=== PATIENT | male | born 1990 | race Caucasian/White ===

== ENCOUNTER 2021-09-09 17:01 | Emergency (ER) | payer OTHER, SELFPAY ==
[2021-09-09 17:02] VITALS: BP 129/95; PULSE 92; RESP 16; TEMP 36.6; O2SAT 99; BMI 21.9
--- NOTE | 2021-09-09 17:10 | EX.ED.DYSGE1 ---
HPI History of Present Illness Chief Complaint: Weakness Detail of Chief Complaint: Lightheaded and almost passed out Informant: patient Onset/Context/Timing Onset: Hours Context: Sudden Onset Timing: Intermittent Quality: Recurrent lightheadedness with standing Location: Near sickle episode occurred at the [facility] Current Severity: Mild Maximum Severity: Severe Worsened by: Upright position Relieved by: Sitting down and or supine position Associated Symptoms Associated Symptoms: Tunnel vision Narrative Narrative: Patient is a healthy 30-year-old male on no meds does endorse smoking and alcohol use who presents with a son from [facility] because he had a near syncopal sewed. He became lightheaded. States has had intermittent lightheadedness with standing since this morning. He denies black or maroon-colored stool. He denies nausea, vomiting diarrhea. He denies fever, chills night sweats. He does report/endorse mild congestion. Otherwise upper respiratory symptoms are negative. He has no cardiac symptoms. He denies paresthesia, anesthesia motors. When asked if he is eating well today he states he does not always eat well. He does endorse dry mouth and thirst Prior similar symptoms: No Recent Illness/Hospitalization: No PFSH PFSH Medical History no medical history no medical history Allergy/AdvReac Type Severity Reaction Status Date / Time No Known Allergies Allergy Verified 09/09/21 17:04 Surgical History no surgical history no surgical history Social History (Updated 09/09/21 @ 17:[address] Viet De La Rosa MD) household members: none and other details: With his son Smoking Status: Current every day smoker tobacco type: cigarettes alcohol intake: current ROS ROS ED Constitutional Constitutional ED: Denies chills, fever(s), subjective, sweats or weight loss Eyes Eyes: Reports blurry vision and change in vision; Denies diplopia ENT ENT ED: Reports rhinorrhea; Denies ear pain or sore throat Cardiovascular Cardiovascular: Denies chest pain, orthopnea, palpitations, paroxysmal nocturnal dyspnea or racing heartbeat Respiratory/Chest Respiratory/Chest: Denies cough, dyspnea, dyspnea on exertion, orthopnea or paroxysmal nocturnal dyspnea Gastrointestinal Gastrointestinal: Denies abdominal pain, constipation, diarrhea, melena, nausea or vomiting Genitourinary Genitourinary ED: Denies dysuria, hematuria or urinary frequency Musculoskeletal Musculoskeletal: Denies arthralgias, myalgias or neck pain Integumentary Denies rash Neurologic Neurologic: Denies headache(s) or weakness Endocrine Endocrinology: Denies polydipsia, polyphagia or polyuria EXAM Physical Exam Const Vital Signs: 09/09/21 17:02 09/09/21 17:31 09/09/21 17:40 Temperature 97.9 F Temperature Source Temporal Pulse Rate 92 Pulse Rate [Lying] 60 Pulse Rate [Sitting (for 1 minute prior to obtaining)] 87 Pulse Rate [Standing (for 1 minute prior to obtaining)] 90 Respiratory Rate 16 Respiratory Effort Normal Non-Labored Respiratory Pattern Normal Blood Pressure 129/95 H Blood Pressure [Lying] 111/80 Blood Pressure [Sitting (for 1 minute prior to obtaining)] 102/74 Blood Pressure [Standing (for 1 minute prior to obtaining)] 119/82 H Blood Pressure Mean 106 Blood Pressure Mean [Lying] 90 Blood Pressure Mean [Sitting (for 1 minute prior to obtaining)] 83 Blood Pressure Mean [Standing (for 1 minute prior to obtaining)] 94 Pulse Ox 99 Oxygen Delivery Method Room Air Positive well nourished and well developed General Appearance ED: well developed and NAD; Negative for cyanotic, diaphoretic or pallor HEENT Reports TM's clear and dry mucous membranes HEENT Narrative: Uvula midline. No erythema exudate the posterior pharynx Negative for trauma or tenderness Tympanic Membrane ED: Yes TM's clear Mouth ED: Yes dry mucous membranes Mouth: dry mucous membranes Eyes PERRL and EOMs intact bilaterally General Eye ED: Negative for pale conjunctiva or scleral icterus Neck no lymphadenopathy, supple and no JVD Chest Wall inspection of chest normal and palpation of chest normal Resp normal respiratory effort and clear to auscultation bilaterally Effort and Inspection: Negative for pain with movement Cardio regular rate, regular rhythm, S1 normal heart sound, S2 normal heart sound and no murmurs GI normal to inspection, nondistended, normoactive bowel sounds, non-tender and non-distended Palpation: soft Back/Spine no CVA tenderness Extremity normal to inspection General Extremety ED: Negative for edema or tenderness General Extremity: Negative for edema Neuro oriented x3, CN's II-XII intact bilaterally and no sensory deficits noted Sensorium / Orientation: alert Motor Exam: strength 5/5 throughout Psych mental status grossly normal Skin no rashes or lesions noted, no wounds and skin turgor normal General Skin Exam: elasticity normal; Negative for jaundice or pallor MDM MDM MDM Narrative Medical decision making narrative: Clinically patient is dehydrated. Will have nurse insert an IV and administer 1 L normal saline. Orthostatics were ordered as well since he is complaining of orthostatic symptoms throughout the day. Since he is under the age of 41 on no medication laboratory testing is not warranted at this time Patient was reassessed at approximately 1813 and felt better after infusion of 500 cc. He was reassessed at 1837. The liter has not completely infused. He looks better feels better and would like to go home. Discharge Plan Triage Chief Complaint: Weakness ED Provider: Viet De La Rosa Dx/Rx/DC Orders Clinical Impression: Acute dehydration, Orthostatic hypotension Instructions: ED Dehydration (Adult), ED Hypotension, Orthostatic Primary Care Provider: Care Physician,No Primary Referrals: Care Physician,No Primary [Primary Care Provider] - Doctor,Your [STAFF PHYSICIAN] - As Needed Disposition Disposition: Home, Self Care
[2021-09-09] MEDS: 0.9% Normal Saline 1,000 ML 1000 ML IV (17:25)
[2021-09-09 17:31] VITALS: BP 102/74; BP 111/80; BP 119/82; PULSE 60; PULSE 87; PULSE 90
[2021-09-09 19:03] VITALS: BP 110/70
== END 2021-09-09 19:05 | disposition home or self-care (01) ==
PROVIDERS: Emergency Provider Emergency Medicine; Visit Provider Emergency Medicine
DX: I95.1 Orthostatic hypotension (principal); E86.0 Dehydration; F17.210 Nicotine dependence, cigarettes, uncomplicated
CPT/HCPCS: 96360; 96361; 99284; J7030

== ENCOUNTER 2024-05-18 01:08 | Emergency (ER) | payer OTHER, SELFPAY ==
[2024-05-18 01:08] VITALS: BP 128/80; PULSE 100; RESP 18; TEMP 36.7; O2SAT 98; BMI 21.5
[2024-05-18] MEDS: Lidocaine 2% (20 ml mdv) 20 ML Vial INFILT (01:37)
[2024-05-18] MEDS: Diphth,Pertuss(Acell),Tet Vac 0.5 ML Vial IM (01:38)
--- NOTE | 2024-05-18 02:58 | EDS_ITS ---
HPI History of Present Illness Chief Complaint: Laceration Informant: patient and spouse/S.O. Narrative Narrative: Patient is a 33-year-old male with no significant past medical history. He states that just prior to arrival he was at home and he excellently knocked a candle over. He states the glass container shattered when it hit the ground and as he walked over to it to clean it up stepped on a piece of glass and cut his left foot/toes. He states that he was unsure if he would need sutures and secondary to this comes in for evaluation PFSH PFS no medical history Home Medications ?Medication ?Instructions ?Recorded ?Last Taken ?Type NK 05/18/24 Unknown History Allergy/AdvReac Type Severity Reaction Status Date / Time No Known Allergies Allergy Verified 05/18/24 01:09 Surgical History (Updated 05/18/24 @ 01:09 by Tasha Farris) History of dental surgery Social History (Updated 09/09/21 @ 17:[address] Viet De La Rosa MD) household members: none and other details: With his son Smoking Status: Current every day smoker tobacco type: cigarettes alcohol intake: current ROS ROS ED Constitutional Constitutional ED: Denies chills or fever(s) ENT ENT ED: Denies sore throat Cardiovascular Cardiovascular: Denies chest pain Respiratory/Chest Respiratory/Chest: Denies cough or dyspnea Gastrointestinal Gastrointestinal: Denies abdominal pain, diarrhea, nausea or vomiting Genitourinary Genitourinary ED: Denies dysuria Musculoskeletal Musculoskeletal: Reports other Details: Positive left foot/toe pain Integumentary Reports other Details: Positive left foot/toe laceration Neurologic Neurologic: Denies headache(s), paresthesias or weakness Hematologic/Lymphatic Hematologic/Lymphatic: Denies easy bleeding or easy bruising EXAM Physical Exam Const Vital Signs: 05/18/24 01:08 05/18/24 03:06 Temperature 98.1 F 97.8 F Temperature Source Oral Pulse Rate 100 84 Respiratory Rate 18 16 Blood Pressure 128/80 H 119/74 Blood Pressure Mean 96 89 Pulse Ox 98 99 Oxygen Delivery Method Room Air Positive well nourished and well developed General Appearance ED: well developed HEENT HEENT Narrative: Normocephalic atraumatic Eyes PERRL and EOMs intact bilaterally Neck supple Resp normal respiratory effort and clear to auscultation bilaterally Cardio regular rate and regular rhythm Extremity Extremity Narrative: Left lower extremity is neurovascularly intact Patient has a linear dermal layer deep laceration to the distal aspect of the third left toe. The wound is 1.5 cm in length without active bleeding or retained foreign body. No ligamentous or tendon damage noted. No nailbed involvement There is a jagged 2.5 cm subcutaneous layer deep laceration to the distal aspect of the fourth digit. There is minimal ooze of blood without retained foreign body. No ligamentous or tendon damage noted. No nailbed involvement. Remainder of the exam is normal Neuro oriented x3, CN's II-XII intact bilaterally and no sensory deficits noted Sensorium / Orientation: alert Motor Exam: strength 5/5 throughout Psych mental status grossly normal Skin Skin Narrative: Laceration to the left third and fourth toe as documented above No secondary findings to suggest infection MDM MDM MDM Narrative Medical decision making narrative: Patient presented to the ER with a simple laceration to his third and fourth toe. He was unsure if his tetanus status so therefore this was updated. Based on location of the wound concern for retained foreign object was low and the patient did not want a x-ray to confirm this. He did not have any signs of ligamentous or tendon damage or bony deformity so I felt no need for emergent orthopedic/podiatry consultation and with low concern for infection I did not f eel the need for laboratory studies. The patient had the wounds closed as documented below and is otherwise safe for discharge The patient had a his wound cleaned with chlorhexidine. The patient was given a digital block in the left fourth toe using 8 mL of 2% lidocaine without epinephrine. The wound was copiously irrigated with normal saline. Then eight 4-0 Ethilon sutures were placed in simple interrupted fashion to bring the wound back together with good approximation. Patient had the left third toe cleaned with chlorhexidine. The wound was copiously irrigated with normal saline. Manual pressure was applied to bring the wound edges together with close approximation. Dermabond was then placed over top the wound to hold the edges together. Patient tolerated the procedure well without complication History & Record Review Discussion w/independent historian: Patient and Significant other Discharge Plan Triage Chief Complaint: Laceration ED Provider: Camilo Sosa Dx/Rx/DC Orders Clinical Impression: Laceration of foot, left Instructions: ED Laceration Extremity, ED Laceration, Skin Adhesive Prescriptions: No Action NK Stand Alone Forms: ED Work / School Excuse Primary Care Provider: Care Physician,No Primary Referrals: Maxim Garcia MD [Med Staff - Active Staff] - Care Physician,No Primary [Primary Care Provider] - Activity Restrictions/Additional Instructions: Please see your family doctor or return to the ER in 7 to 10 days for suture removal Print Language: Citizen Of [place] Disposition Disposition: Home, Self Care Discharge Date/Time: 05/18/24 03:07
[2024-05-18 03:06] VITALS: BP 119/74; PULSE 84; RESP 16; TEMP 36.6; O2SAT 99
== END 2024-05-18 03:07 | disposition home or self-care (01) ==
PROVIDERS: Emergency Provider Emergency Medicine; Visit Provider Emergency Medicine
DX: S91.115A Laceration without foreign body of left lesser toe(s) without damage to nail, initial encounter (principal); W25.XXXA Contact with sharp glass, initial encounter; Y92.009 Unspecified place in unspecified non-institutional (private) residence as the place of occurrence of the external cause; F17.210 Nicotine dependence, cigarettes, uncomplicated; Z23 Encounter for immunization
CPT/HCPCS: 12002; 90715; 99283